=== PATIENT | male | born 1975 | race Caucasian/White ===

== ENCOUNTER 2018-06-06 12:24 | Inpatient (IN) | payer OTHER ==
--- NOTE | 2018-06-06 12:54 | EDPHY ---
HPI/HX/ROS/PE/MDM Narrative: CHIEF COMPLAINT: Abdominal pain HISTORY OF PRESENT ILLNESS: This patient is a 43 year old male with history of metastatic melanoma with mets to brain, liver, and bone complaining of abdominal distention and fatigue. He was initially diagnosed in November,. Two days ago he began taking Allopurinol to prevent increased uric acid related to tumor lysis. Patient recently received immunoglobulin therapy. He had a prior treatment in January and his current symptoms did not occur then. He feels that his stomach has become more swollen in the last couple days since his treatment. Denies any history of ascites. He endorses some constipation. He also fatigues easily with any small exertion. Patient was hypoxic at triage. He denies ever needing oxygen in the past. He endorses an intermittent mild cough. He endorses difficulty concentrating. Endorses lack of appetite. Denies fever. He has never had a seizure. He is not anticoagulated. He has an intermittent mild cough. No history of abdominal surgeries. He is currently undergoing immunotherapy and is followed by Dr. Alvarez, oncologist at [facility]. No fever, chills, chest pain, shortness of breath, palpitations, vomiting, diarrhea, urinary complaints , headache, lightheadedness. REVIEW OF SYSTEMS: A comprehensive 10 system review of systems is otherwise negative aside from elements mentioned in the history of present illness and medical decision making. PAST MEDICAL HISTORY: Hypertension. Bradycardia. Stage IV melanoma with metastases to liver, bone, and brain. SOCIAL HISTORY: Significant other at bedside. No alcohol, marijuana, or illicit drug use. Former smoker. VITAL SIGNS: Reviewed by me GENERAL: Diaphoretic. Pale/taylor skin. Ill-appearing. HEENT: Atraumatic. Eyes: No icterus, no injection. Mouth: Dry lips, slightly dry mucous membranes. No erythema or lesions. Neck: supple with no adenopathy. LUNGS: Clear to auscultation bilaterally, no wheezes, rhonchi or rales. CARDIAC: Regular tachycardia, no rubs, murmurs or gallops. ABDOMEN: Distended, very mild tenderness, no fluid wave. Skin graft site on abdomen. Soft, bowel sounds normal. BACK: No CVA tenderness. EXTREMITIES: No trauma. No edema. Range of motion is normal throughout. NEURO: Alert and oriented, grossly nonfocal. SKIN: Cool and clammy, no rash. PSYCHIATRIC: Normal mentation, no agitation. Portions of this note were transcribed by a hospital medical assistant. I personally performed a history, physical exam, medical decision making, and confirmed accuracy of information the transcribed note. ED Course: This patient is a 43 y/o male with history of metastatic melanoma who presents with abdominal distention and discomfort, and fatigue. Patient is followed by Dr. Alvarez, oncologist, at [facility] in [place]. He does not have a local physician. [phone] Alvarez. 12-LEAD EKG: Please see the full report in [facility]. My interpretation: Sinus rhythm. Low voltage. T wave inversions in lead 3. 13:10 Potassium is 5.8. Plan to start IVF. 13:13 Lactic acid 4.8. WBC elevated at 20,000. Sepsis protocol initiated. 14:02 Reviewed CXR. Evidence of bilateral pleural effusions. Possible cardiomegaly. Diaphragm elevated. 14:[address] Greene, radiologist. CT abdomen/pelvis negative for abscess or obstruction. Small amount of ascites present. Liver shows evidence of vast metastatic disease. 14:50 Attempted to contact patient's PA at oncology. 15:10 Spoke with PA for oncology at [facility]. Discussed high suspicion for pneumonitis in this patient. 15:30 Plan to admit. Spoke with hospitalist service. Dr. Padilla accepts admission for abdominal distention, hypoxia, metastatic disease. 16:[address] Alvarez, the patient's oncologist. He recommends 80mg Prednisone as well as high suspicion for pneumonitis, colitis. - Data Points Imaging Results: Abdomen/Pelvis CT 06/06/18 13:11 Impression: 1. Diffuse hepatic metastases. 2. Adenopathy compatible with metastatic disease. 3. Coclf-xl-[id number] volume of ascites with small bilateral pleural effusions. 4. Indeterminate lucency in the L4 vertebral body, with no definite evidence of osseous metastases. 4. Mild splenomegaly. 5. Additional findings as above. Findings discussed with Guerita Chacon MD, 06/06/2018 at 14:30. Attention: This examination does not use radiographic contrast, and as such, provides only a limited evaluation of the abdomen, pelvis and retroperitoneum. Chest X-Ray 06/06/18 13:28 Impression: 1. Small bilateral pleural effusions left side greater than right with adjacent compressive atelectatic change along with poor inspiration. Imaging: I viewed and interpreted images myself Laboratory Results: Laboratory Results 06/06/18 12:55 06/06/18 14:30 Medications Given: Discontinued Medications Allopurinol (Allopurinol) 100 mg PO DAILY ARGELIA Stop: 12/04/18 17:29 Last Admin: 06/08/18 08:40 Dose: 100 mg Calcium Gluconate (Calcium Gluconate) 1 gm IVP EDNOW ONE Stop: 06/06/18 13:49 Last Admin: 06/06/18 14:15 Dose: 1 gm Dextrose (Dextrose 50% Syringe) 25 gm IVP EDNOW ONE Stop: 06/06/18 13:49 Last Admin: 06/06/18 14:17 Dose: 25 gm Diphenhydramine HCl (Benadryl Injection) 25 mg IVP EDNOW ONE Stop: 06/06/18 15:17 Last Admin: 06/06/18 15:38 Dose: 25 mg Fludrocortisone Acetate (Florinef) 0.1 mg PO DAILY ARGELIA Stop: 12/04/18 15:59 Last Admin: 06/08/18 08:39 Dose: 0.1 mg Furosemide (Lasix Injection) 20 mg IVP ONCE ONE Stop: 06/07/18 13:50 Last Admin: 06/07/18 14:24 Dose: 20 mg Hydrocortisone/Pramoxine (Proctofoam-Hc Foam) 1 darion SD QID ARGELIA Stop: 12/05/18 09:10 Last Admin: 06/08/18 12:51 Dose: Not Given Sodium Chloride (Ns) 1,000 mls @ 0 mls/hr IV EDNOW ONE; Wide Open PRN Reason: Protocol Stop: 06/06/18 13:12 Last Admin: 06/06/18 13:21 Dose: 1,000 mls Sodium Chloride (Ns) 2,400 mls @ 4,800 mls/hr 30 ml/kg infuse over 30 min ( 2400 ml) IV EDNOW ONE PRN Reason: Protocol Stop: 06/06/18 14:28 Last Admin: 06/06/18 14:00 Dose: 1,400 mls Sodium Chloride (Ns) 1,000 mls @ 125 mls/hr IV CONT ARGELIA Stop: 12/03/18 18:14 Last Admin: 06/06/18 18:25 Dose: 1,000 mls Cefepime HCl 2 gm/ Sodium (Chloride) 100 mls @ 200 mls/hr IV Q8H ARGELIA PRN Reason: Protocol Stop: 07/06/18 18:59 Last Admin: 06/08/18 12:41 Dose: Not Given Sodium Chloride (Ns) 2,400 mls @ 4,800 mls/hr 30 ml/kg infuse over 30 min ( 2400 ml) IV ONCE ONE Stop: 06/06/18 18:36 Last Admin: 06/06/18 18:46 Dose: Not Given Insulin Human Regular (Humulin R) 10 unit IVP EDNOW ONE Stop: 06/06/18 13:49 Last Admin: 06/06/18 14:17 Dose: 10 units Methylprednisolone Sodium Succinate (Solu-Medrol) 125 mg IVP EDNOW ONE Stop: 06/06/18 15:15 Last Admin: 06/06/18 15:42 Dose: 125 mg Methylprednisolone Sodium Succinate (Solu-Medrol) 125 mg IVP Q6HRS ARGELIA Stop: 06/07/18 04:00 Last Admin: 06/06/18 23:34 Dose: 125 mg Morphine Sulfate (Morphine) 6 mg IVP EDNOW ONE Stop: 06/06/18 15:34 Last Admin: 06/06/18 15:46 Dose: 6 mg Morphine Sulfate (Morphine) 1 - 2 mg IVP Q1HR PRN PRN Reason: Pain, Severe Unable to Take PO Stop: 06/16/18 15:52 Last Admin: 06/07/18 12:07 Dose: 2 mg Morphine Sulfate (Morphine Ir) 15 mg PO Q4HRS PRN PRN Reason: Pain, Severe Able to Take PO Stop: 06/16/18 22:57 Last Admin: 06/08/18 12:41 Dose: 15 mg Pantoprazole Sodium (Protonix) 40 mg PO BID [facility] Stop: 12/04/18 11:59 Last Admin: 06/08/18 08:40 Dose: 40 mg Prednisone (Prednisone) 80 mg PO DAILY [facility] Stop: 12/04/18 08:59 Last Admin: 06/08/18 08:38 Dose: 80 mg Senna/Docusate Sodium (Senokot-S) 1 - 2 tab PO BID ARGELIA PRN Reason: Protocol Stop: 12/03/18 20:59 Last Admin: 06/08/18 08:39 Dose: 2 tab Sodium Polystyrene Sulfonate (Kayexalate) 30 gm SD EDNOW ONE Stop: 06/06/18 13:49 Last Admin: 06/06/18 15:08 Dose: Not Given Sodium Polystyrene Sulfonate (Kayexalate) 30 gm PO ONCE ONE Stop: 06/06/18 20:00 Last Admin: 06/07/18 02:48 Dose: Not Given Sodium Polystyrene Sulfonate (Kayexalate) 30 gm PO ONCE ONE Stop: 06/07/18 05:48 Last Admin: 06/07/18 10:44 Dose: Not Given Sodium Polystyrene Sulfonate (Kayexalate) 30 gm PO ONCE ONE Stop: 06/07/18 13:50 Last Admin: 06/07/18 20:09 Dose: 30 gm Point of Care Test Results: Chemistry 06/06/18 06/06/18 13:04 13:00 POC Sodium 131 mEq/L L mEq/L (135-145) POC Potassium 5.8 mEq/L H mEq/L (3.3-5.0) POC Chloride 101 mEq/L mEq/L (97-110) POC BUN 49 mg/dL H mg/dL (7-23) POC Creatinine 1.0 mg/dL mg/dL (0.7-1.3) POC Glucose 117 mg/dL H mg/dL (70-100) POC Troponin I 0.03 ng/mL ng/mL (0.00-0.08) Blood Gas/Lactic Acid-Arterial 06/06/18 13:11 POC Blood Source VENOUS Blood Gas/Lactic Acid-Venous 06/06/18 13:11 POC VBG pH 7.39 (7.31-7.42) POC VBG pCO2 33 mmHg L mmHg (40-44) POC VBG pO2 43 mmHg H mmHg (35-40) POC VBG HCO3 20 mEq/L L mEq/L (22-26) POC VBG Total CO2 21 mEq/L mEq/L (21-27) POC VBG Base Excess -5.0 mEq/L L mEq/L (-2.5-2.5) POC Mix VBG O2 Sat 81 % H % (65-75) POC Lactic Acid Lamont 4.9 mmol/L H mmol/L (0.7-2.1) ISTAT H&H 06/06/18 13:04 POC Hgb 18.0 gm/dL H gm/dL (13.7-17.5) POC Hct 53 % H % (40-51) General Initial Vital Signs: Initial Vital Signs Temperature (C) 36.4 C 06/06/18 12:27 Heart Rate 98 06/06/18 12:27 Blood Pressure 150/98 H 06/06/18 12:27 O2 Sat (%) 85 L 06/06/18 12:27 O2 Delivery Mode Nasal Cannula O2 (L/minute) 4 Allergies/Adverse Reactions: Iodine and Iodide Containing Produc Allergy (Verified 06/06/18 12:36) Home Medications: Medication Instructions Recorded Allopurinol [Allopurinol 100 MG 100 mg PO DAILY 06/06/18 (*)] Nivolumab IV 06/06/18 Yervoy IV 06/06/18 Cefepime HCl [Maxipime] 2 gm IV Q8H vial 06/07/18 Fludrocortisone Acetate [Florinef] 0.1 mg PO DAILY tab 06/07/18 Ondansetron HCl Pf [Zofran 4 mg 4 mg IVP Q4HRS PRN vial 06/07/18 Inj (*)] Ondansetron Odt [Zofran Odt 4 mg 4 mg PO Q4HRS PRN tab 06/07/18 (*)] Pantoprazole Sodium [Protonix 40mg 40 mg PO BID tab 06/07/18 (*)] Polyethylene Glycol 3350 [Miralax 17 gm PO DAILY PRN pkt 06/07/18 17 gm (*)] Promethazine HCl [Phenergan 6.25 - 12.5 mg IVP Q6HRS PRN inj 06/07/18 Injection] morphINE IR [morphINE IR 15 mg (*)] 15 mg PO Q4HRS PRN tab 06/07/18 morphINE [morphINE 2mg/ml Inj (*)] 1 - 2 mg IVP Q1HR PRN syr 06/07/18 predniSONE 80 mg PO DAILY tablet 06/07/18 Departure - Departure Disposition: [facility] Acute Clinical Impression: Abdominal distension, Hypoxemia, Metastatic disease Condition: Fair Report Scribed for: Guerita Chacon Report Scribed by: Renee Reed Date of Report: 06/06/18 Time of Report: 12:54
[2018-06-06] MEDS ORDERED: NS 1,000 ML IV ONE (13:11)
[2018-06-06 13:22] LABS: PLATELET COUNT 240 10^3/uL (150-400)
[2018-06-06 13:31] LABS: INR 1.12 (0.83-1.16); PROTIME(PATIENT) 14.6 SEC (12.0-15.0)
[2018-06-06] MEDS ORDERED: INSULIN REGULAR HUMAN 100 UNIT/ML UNIT IVP ONE (13:48)
[2018-06-06] MEDS ORDERED: SODIUM POLY SULF 15 GM/60 ML BOTTLE PR ONE (13:48)
[2018-06-06] MEDS ORDERED: D50W 25 GM/50 ML SYR IVP ONE (13:48)
[2018-06-06] MEDS ORDERED: CALCIUM GLUC 10% 1 GM/10 ML VIAL IVP ONE (13:48)
[2018-06-06] MEDS ORDERED: NS 2,400 ML IV ONE ×2 (13:59→18:07)
[2018-06-06 14:11] LABS: CREATINE KINASE 181 IU/L (0-224)
[2018-06-06] MEDS ORDERED: methylPREDNISolone SOD SUCC 125 MG/2 ML VIAL IVP ONE (15:14)
[2018-06-06] MEDS ORDERED: ONDANSETRON 4 MG/2 ML VIAL IVP PRN (15:53)
[2018-06-06] MEDS ORDERED: PROMETHAZINE HCL 25 MG/ML INJ IVP PRN (15:53)
[2018-06-06] MEDS ORDERED: HYDROCODONE/APAP 5/325 TAB PO PRN (15:53)
[2018-06-06] MEDS ORDERED: ACETAMINOPHEN 325 MG TAB PO PRN (15:53)
[2018-06-06] MEDS ORDERED: ONDANSETRON DISINTEGRATING 4 MG TAB PO PRN (15:53)
[2018-06-06] MEDS ORDERED: LORazepam 2 MG/ML INJ IVP PRN (15:53)
[2018-06-06] MEDS ORDERED: IOPAMIDOL (ISOVUE 370) 100 ML BTL IV ONE (16:51)
[2018-06-06] MEDS ORDERED: POLYETHYLENE GLYCOL 3350 17 GM PKT PO PRN (18:13)
[2018-06-06] MEDS ORDERED: MAGNESIUM HYDROXIDE 30 ML UDCUP PO PRN (18:13)
[2018-06-06] MEDS ORDERED: LACTULOSE 20 GM/30 ML UDCUP PO PRN (18:13)
[2018-06-06] MEDS ORDERED: BISACODYL 10 MG SUPP PR PRN (18:13)
[2018-06-06] MEDS ORDERED: NS 1,000 ML IV SCH (18:15)
--- NOTE | 2018-06-06 18:41 | GHP ---
DATE OF ADMISSION: 06/06/2018 CHIEF COMPLAINT: Abdominal bloating and pain. HISTORY: This is a 43-year-old man who is a patient at the [facility] for malignant metastatic melanoma. Patient has known metastases to the brain and liver, and has been undergoing treatment with nivolumab and ipilimumab since 05/24/2018. The patient notes that for the last couple of weeks, he has had issues with increasing exhaustion to the point where he really cannot walk across the room. He has had also recent abdominal pain associated with constipation, anorexia, and abdominal bloating. He has also been increasingly short of breath, and does not use oxygen typically at home. He denies fevers or chills. His notes that he has had decreased urine output for the last couple of days. The patient currently resides with his mother who lives here in [place], although he is receiving all of his care at the [facility] in [place]. He is scheduled for a brain MRI tomorrow to assess any progression of the known brain metastases from his melanoma. PAST MEDICAL HISTORY: Includes: 1. Metastatic melanoma as per HPI with known metastases to the brain and liver. It has been progressive, and he has been started on a new course of treatment as per HPI. 2. Chronically elevated LFTs secondary to his liver metastases. 3. Hypertension. PAST SURGICAL HISTORY: Includes skin biopsy and graft. SOCIAL HISTORY: Patient has a girlfriend who is present at bedside. He currently resides with his mother. He is a nonsmoker, nondrinker, nondrug user. FAMILY HISTORY: Reviewed and noncontributory. REVIEW OF SYSTEMS: Ten-point review of systems obtained, negative except as per HPI. HOME MEDICATIONS: 1. Allopurinol. 2. Morphine. 3. Nivolumab. 4. Ipilimumab. ALLERGIES: Iodine. PHYSICAL EXAMINATION: VITAL SIGNS: BP 125/92, heart rate 107, respiratory rate 24, O2 sats 93% on 5 L. He was 85% on room air. GENERAL APPEARANCE: This is a chronically ill-appearing male. He is awake and alert. He is in mild distress. EYES: Anicteric. HENT: Atraumatic. Dry mucous membranes. Face is flushed. CARDIOVASCULAR: Mildly tachy, regular, no MRG, 2+ pitting edema bilateral lower extremities. PULMONARY: Decreased breath sounds at the bases. Normal work of breathing. ABDOMEN: Mildly distended, diffuse tenderness to palpation without rebound or guarding, bowel sounds are present and normal. EXTREMITIES: 2+ pitting edema. No clubbing or cyanosis appreciated. SKIN: Warm, flushed, well perfused. NEURO/PSYCH: Oriented, appropriate. Patient is diffusely weak. LABORATORY STUDIES: Sodium of 132, potassium of 6.3 on repeat 5.8, BUN of 55, creatinine of 1.0, glucose of 112, conjugated bilirubin of 0.9, AST 604, ALT 157 , alk phos 908. White blood cell count of 20.3, hemoglobin of 16.6, hematocrit of 50.1. Lactic acid 4.4 to 3.8. Urinalysis showing casts and protein, but otherwise unremarkable. Chest x-ray personally reviewed and interpreted shows small bilateral pleural effusions, left greater than right, with compressive atelectasis and poor inspiration. Abdominal pelvic CT shows diffuse hepatic metastases, adenopathy. There is [id number] volume ascites with small bilateral pleural effusions. Indeterminate lucency in the L4 vertebral body without evidence of osseous metastases, otherwise unremarkable. EKG personally reviewed and interpreted shows sinus tachycardia. ASSESSMENT AND PLAN: This is a 43-year-old man with past medical history of metastatic melanoma, presenting with abdominal pain and bloating, constipation, and sepsis. 1. Severe sepsis with unclear source, however, presumed to be an infectious etiology. Cultures have been drawn and are pending. We will obtain a procalcitonin. We will start cefepime empirically. Chest and thorax CTA obtained given the patient's acute hypoxic respiratory failure as per next. 2. Acute hypoxic respiratory failure. Patient presenting with O2 saturations of 85% on room air. He has improved with supplemental O2. This was discussed with patient's outpatient oncologist and while this could represent a pneumonitis in the setting of his current biologic chemotherapy agents, this also could represent infectious process. Antibiotics as per above. CTA pending. We will ask our oncologist to evaluate patient while he is in-house as well. 3. Abdominal pain and bloating with an abdominal CT that was relatively unremarkable other than known metastatic disease. In discussion with oncology this is likely colitis related to biologic chemo. He does have mild-to- moderate ascites, but do not suspect this is responsible for his symptoms. Constipation has been a problem. We will start a bowel protocol and high dose steroids, IV methylpred tonight and 80mg prednisone in the am per oncology rec. 4. Prerenal azotemia in the setting of poor p.o. intake secondary to feeling poorly. does note that his urine output has been dropping off. We will monitor I's and O's, and continue IV fluids. Complicated by edema as next 5. volume overload: patient with lower extremity edema, mild ascites, small pleural effusion but appears to be intravascularly dry. Given fluid bolus with improved UOP, lactate still elevated as above. 6. Anion gap metabolic acidosis, elevated lactic acid on arrival. It is trending down but still elevated at 3.8. We will continue to trend.Given normal BP and good UOP etc query if lactate elevation related more to underlying malignancy and liver disease rather than tissue hypoperfusion. 7. Hyperkalemia, improved status post IV fluids. Will repeat. Suspect this is secondary to, again, volume depletion and prerenal azotemia. ECG without change, patient refusing kayaxelate. 8. Hyponatremia. Suspect this is a hypovolemic hyponatremia. Will continue to trend. 9. Elevated liver function tests. This is relatively stable and due to patient 's known extensive liver metastases. We will trend while inhouse. 10. Metastatic malignant melanoma with known brain and liver metastases. Patient is due for a brain MRI for further evaluation, and will discuss with Oncology whether or not this should be performed in-house. Onc consuted and will eval in morning Addendum: Patient increasingly upset with his care over the course of the night. Unhappy that he is under care of an afterschool babysitter rather than oncologist and upset that he is not improving in terms of his symptoms yet. Does not believe that oncology has been consulted for guidance. Offered to transfer patient to [facility] given his upset but he declines at this time. /[id number]/MODL MTDD
--- NOTE | 2018-06-06 18:50 | CPEKG ---
Test Reason : OPEN Blood Pressure : / mmHG Vent. Rate : 102 BPM Atrial Rate : 102 BPM P-R Int : 181 ms QRS Dur : 103 ms QT Int : 366 ms P-R-T Axes : 038 130 009 degrees QTc Int : 477 ms Sinus tachycardia Right axis deviation Low voltage, precordial leads Consider anterior infarct Confirmed by Guerita Chacon ([id number]) on 06/06/2018 6:50:23 PM Referred By: Confirmed By:Guerita hCacon
[2018-06-06] MEDS: CEFEPIME HCL 2 GM in NS 100 ML IV SCH (19:58)
[2018-06-06] MEDS: SENNOSIDES/DOCUSATE SODIUM TAB PO SCH (19:58)
[2018-06-06] MEDS: SODIUM POLY SULF 15 GM/60 ML BOTTLE PO ONE (21:28)
[2018-06-07] MEDS ORDERED: methylPREDNISolone SOD SUCC 125 MG/2 ML VIAL IVP SCH
[2018-06-07] MEDS: SODIUM POLY SULF 15 GM/60 ML BOTTLE PO ONE (02:48)
[2018-06-07] MEDS: SENNOSIDES/DOCUSATE SODIUM TAB PO SCH ×3 (02:49→22:04)
[2018-06-07] MEDS: CEFEPIME HCL 2 GM in NS 100 ML IV SCH ×3 (03:38→19:52)
[2018-06-07 04:25] LABS: PLATELET COUNT 199 10^3/uL (150-400)
[2018-06-07] MEDS ORDERED: SODIUM POLY SULF 15 GM/60 ML BOTTLE PO ONE ×2 (05:47→13:49)
[2018-06-07] MEDS: predniSONE 20 MG TAB PO SCH (10:17)
--- NOTE | 2018-06-07 10:33 | PDMN ---
Medical Necessity Medical necessity: Pt meets inpt criteria per MD order and MCG M-160, Sepsis and Other Febrile Illness, without Focal Infection, A-3 days. Est LOS>2MN for management of severe sepsis w/unclear source, presumed infectious etiology and acute hypoxic resp failure, 85% on RA, tachypneic, CTA chest shows sm pericardial effusion. Pt also presents w/extreme weakness, abdominal pain and bloating w/ascites and prerenal azotemia in setting of poor po intake, metabolic acidosis, lactate level elevated (last VBG lactic acid 4.9), hyperkalemia (last K level 6.7 trending up), hyponatremia. IVF, IV ABX's, IV steroids, IV morphine for pain, suppl O2,onc consult. Pt has hx progressive malignant melanoma with mets to brain and liver, has been undergoing treatment since 05/24/18, ongoing med nec inpt eval/treatment needed for above issues.
--- NOTE | 2018-06-07 10:57 | ECHO ---
[email or web address] [address] [address] Main: [phone] Fax: Transthoracic Echocardiogram Name: CLAUDIO JOHNSON MR#: [id number] Study Date: 06/07/2018 Study Time: 09:08 AM Date of : 1975 Age: 43 year(s) Height: 172.7 cm (68 in.) Weight: 81.65 kg (180 lb.) BSA: 1.95 m2 Gender: Male Examination: Echo Indication: volume overload, cardiotoxic chemotherapy Image Quality: Adequate Contrast: Requested by: Feli Padilla BP: 130 mmHg/92 mmHg Heart Rate: Rhythm: Indication: volume overload, cardiotoxic chemotherapy Procedure Staff [employer] Supervisor: Sheri Jose [facility] Reading Physician: Gonzalez Solis MD Requesting Provider: Measurements: Chambers Valvular Assessment AV/MV Valvular Assessment TV/PV Normal Normal Normal Name Value Range Name Value Range Name Value Range Ao Courtney (2D): 3.5 cm (1.4 cm-2.6 AV Vmax: 1.05 m/s (1 m/s-1.7 PV Vmax: 0.79 m/s (0.6 m/s-0.9 cm) m/s) m/s) IVSd (2D): 0.8 cm (0.6 cm-1.1 AV maxP mmHg ( - ) PV PGmax: 2 mmHg ( - ) cm) LVOT Vmax: 0.96 m/s (0.7 m/s-1.1 LVDd (2D): 4.2 cm (4.2 cm-5.9 m/s) cm) REGINA (Vmax): 3.5 cm2 ( - ) LVDs (2D): 2.9 cm (2.1 cm-4 MV E Vmax: 0.40 m/s ( - ) cm) MV A Vmax: 0.50 m/s ( - ) LVPWd (2D): 1.0 cm (0.6 cm-1 MV E/A: 0.80 ( - ) cm) LVOTd 2.2 cm 2.2 cm mm LVEF (BP): 66 % (>=55 %) RVDd(2D): 3.6 cm (1.9 cm-3.8 cmmm) Continued Measurements: Chambers Valvular Assessment AV/MV Name Value Name Value LADs Lon.9 cm MV DecTime: 218 m/s LA Area: 13.9 cm2 MV E/E' Septal: 6.30 LA Volume: 31 ml MV E/E' Lateral: 3.20 LA Volume Index: 15.9 ml/m2 RA Area: 14.6 cm2 Additional Vessels Patient: CLAUDIO JOHNSON Study Date: 06/07/2018 Page 1 of 2 09:08 AM Name Value Ao Ascendin.8 cm Findings: Left Ventricle: Normal size left ventricle. Borderline concentric LV hypertrophy. Normal global systolic LV function. EF is 66 %. No regional wall motion abnormality. Normal diastolic LV function. Right Ventricle: Normal size right ventricle. Normal RV function. Left Atrium: The left atrium is normal in size. Right Atrium: The right atrium is normal in size. Mitral Valve: The mitral valve is normal in appearance. There is no mitral valve regurgitation. Aortic Valve: The aortic valve is normal in appearance and function. There is no aortic valve regurgitation. No aortic valve stenosis is present. Tricuspid Valve: The tricuspid valve is normal in appearance and function. There is no tricuspid valve regurgitation. Pulmonary artery pressure is not obtained due to inadequate TR jet. Pulmonic Valve: Pulmonary valve not well visualized. There is no pulmonic regurgitation seen. Aorta: Normal size aortic root measuring 3.5 cm. Normal size ascending aorta measuring 3.8 cm. IVC: The IVC is not well visualized. Pericardium: Trivial pericardial effusion. (No Signature Object) Patient: CLAUDIO JOHNSON Study Date: 06/07/2018 Page 2 of 2 09:08 AM [id number]
[2018-06-07] MEDS: PANTOPRAZOLE SODIUM 40 MG TAB PO SCH ×2 (12:07→22:04)
--- NOTE | 2018-06-07 12:47 | HOSPPROG ---
Hospitalist Progress Note Assessment/Plan: 43 yo M w metastatic melanoma here w weakness, dyspnea, abdominal distension and hyperkalemia abdominal distension: suspect 2/2 ascites and enlarged liver from mets (images reviewed/interpreted by me) bowel sounds present and no rebound follow elevated lft's: transaminases and alk phos higher than resent values at [facility]- 200 's there liver parenchyma largely replaced w tumor check RUQ u/s to eval for biliary disease although unlikely given absence of barton's, normal ducts and bili hyperkalemia: ekg w normal intervals and t waves no clear explanation from current presentation suspect tissue from mets he is refusing telemetry, and thus far, repeat blood draw to check K, which has been treated this worsens his care sepsis: tachycaRDIA and elevated lactate elevated lactate more likely to be from impaired hepatic clearance continue cefepime source unclear- doubt pneumonia or abdominal source and UA OK proph: add lmwh code: full dyspnea: PE study neg no sig infiltrate plan of care: he has requested transfer to [facility], where he has been accepted but no bed 45 min crit care Subjective: case discussed at length w Dr Vitale, oncologist at [facility] Objective: Vital Signs Temp Pulse Resp BP Pulse Ox 36.6 C 94 20 153/109 H 91 L 06/07/18 11:53 06/07/18 11:53 06/07/18 11:53 06/07/18 11:53 06/07/18 11:53 Laboratory Results 06/07/18 03:57 06/07/18 03:57 06/06/18 06/07/18 06/08/18 05:59 05:59 05:59 Intake Total 3375 Output Total 175 Balance 3200 PT 14.6 SEC (12.0-15.0) 06/06/18 12:55 INR 1.12 (0.83-1.16) 06/06/18 12:55 - Physical Exam Constitutional: no apparent distress, appears nourished Eyes: PERRL, anicteric sclera Ears, Nose, Mouth, Throat: moist mucous membranes, hearing normal Cardiovascular: regular rate and rhythym, no murmur, rub, or gallop, No systolic murmur Respiratory: no respiratory distress, no rales or rhonchi Gastrointestinal: normoactive bowel sounds, distension, No barton's sign, No guarding, No rebound Genitourinary: No mcknight in urethra Skin: warm, normal color Musculoskeletal: full muscle strength, no muscle tenderness Neurologic: AAOx3 Psychiatric: interacting appropriately ICD10 Worksheet Patient Problems: Problems Problem Status Onset Abdominal distension Acute Hypoxemia Acute Metastatic disease Acute
[2018-06-07] MEDS ORDERED: FUROSEMIDE 20 MG/2 ML VIAL IVP ONE (13:49)
--- NOTE | 2018-06-07 14:26 | ASMTCMCOM ---
CM Note CM Note Notes: Pt is a 43 y/o male with metastatic cancer, abdominal distension and hypoxia. This Pt is requesting to be transferred to [facility]. Dr Arambula has contacted [facility] and at this time he is waiting for a bed to open. The EMTALA form has been begun. Dr Arambula has completed his part. [facility] has printed out the Pt's files. Transportation will be arranged once a bed is identified. CM to follow. D/C Plan: Transfer to [facility] Date Signed: 06/07/2018 02:25 PM Electronically Signed By:Anat Cochran
[2018-06-07] MEDS ORDERED: NS 1,000 ML IV SCH (17:00)
[2018-06-07] MEDS: FLUDROCORTISONE ACETATE 0.1 MG TAB PO SCH (18:02)
--- NOTE | 2018-06-07 18:02 | GDS ---
Date of discharge uncertain. DISCHARGE DIAGNOSES: 1. Metastatic melanoma. 2. Metabolic acidosis. 3. Urinary retention. 4. Hyperkalemia. 5. Hyponatremia. 6. Suspected adrenal insufficiency. 7. Leukocytosis. HOSPITAL COURSE: Please see admission History and Physical by Dr. Feli Padilla. The patient presented with weakness, dyspnea. He on dual immune therapy with Yervoy and nivolumab and at [facility]. He has known hepatic metastases with baseline transaminases in the 200s. On presentation, he was found to have no pulmonary embolism, diffuse hepatic metastatic disease, transaminases on in this 500s with an elevated alkaline phosphatase, leukocytosis, hyponatremia, hyperkalemia. 1. 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 He received steroids in the emergency department. Cortisol was added onto the admission labs which is pending at this time. He is ordered Florinef but it has not been given yet. He has not had ejkg changes with hyperkalemia and has refused telemetry monitoring. 2. Decreased urinary output: Despite a relatively normal creatinine, the patient appears dry. He has been given IV fluids on. He has actually been a bit of a noncompliant patient, refusing many things including further IV fluids ; however, he has begun to make urine. Peace is being placed at this time. 3. The patient has refused telemetry, I think he will accept it now. He has had no EKG changes, normal intervals, and non-peaked T-waves. He received Lasix and a couple of doses of Kayexalate. 4. Metabolic acidosis: The patient has a venous pH of 7.4 I suspect this elevated lactate is secondary to the near complete replacement of his hepatic parenchyma with tumor as opposed to tissue hypoperfusion_. 5. Question sepsis: Patient has no clear source of fever. He is on cefepime. There is no skin rash or other source of gram-positive infection. He does not have an intravascular device, so therefore vancomycin has been withheld. 6. Metastatic melanoma: His immune therapy is on hold. 7. Dyspnea: The patient has a CTA of the chest showing no pulmonary embolism, perhaps a bit of pneumonitis. He has no oxygen requirement notably. He had an echocardiogram that was unremarkable for wall motion abnormalities or diastolic dysfunction. He does not clinically have heart failure while here. 8. Plan of care: The patient has been a bit difficult to care for here, refusing many things, demanding transfer to [facility]. At the current time, the patient is in the queue to get a bed but we are waiting. He has been seen by our oncologist and further recommendations are forthcoming. The patient notably has been hemodynamically stable, afebrile, nontachycardic while here. He does not have an oxygen requirement. 9. This discharge is for transfer, not discharge to home. he requires inpatient care /[id number]/MODL MTDD
--- NOTE | 2018-06-07 18:52 | GHP ---
DATE OF ADMISSION: 06/06/2018 REASON FOR CONSULTATION: Patient admitted with abdominal pain and distension with history of metasta tic melanoma. Mr. John Luong is a very unfortunate 43-year-old male who is followed at [facility] by Dr. Dontae Alvarez for a history of metastatic melanoma. I do not have any of the primary records available. However, the patient reports that he was diagnosed with a nodular me lanoma in his scalp in November 2017. He describes undergoing a wide local excision with a sentinel nod e biopsy, which then led to a PET scan that identified liver metastases. He was diagnosed with metas tatic melanoma in December and then in January went to [place] and was treated on a clinical trial wit h ipilimumab and pembrolizumab along with high-dose aspirin. He reports that he was given 1 treatmen t and developed a significant rise in his liver function tests and LDH and, therefore, was taken off trial. He questions whether or not there may have been some component of tumor lysis. He was felt t o have very aggressive and progressive disease and came to [place] and is being seen by Dr. Alvarez at [facility]. 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 He has known bone, liver and brain meta stases. More recently, due to progressive disease in May he received his 1st dose of ipilimumab w ith nivolumab on May 24. That was given without incident. John is here today with his girlfriend. They report that he has had increasing abdominal pain and distension for the last 3-4 days. He is constipated and last had a bowel movement yesterday. He is anorectic and has no appetite but has not been vomiting. He denies any fever. He is understandably concerned about his condition and is eager to be transferred to [facility] when a bed is available. PAST MEDICAL HISTORY: 1. Metastatic melanoma with brain, liver and bone metastases. 2. Hypertension. PAST SURGICAL HISTORY: Wide local excision of a mallet scalp melanoma with sentinel lymph node biops y. SOCIAL HISTORY: He has a girlfriend. He lives in a trailer. He is a nonsmoker and nondrinker. FAMILY HISTORY: Noncontributory. REVIEW OF SYSTEMS: A 10-point review of systems is negative except for HPI. PHYSICAL EXAMINATION: GENERAL: He is a pale, chronically ill appearing, somewhat uncomfortable male sitting on the edge of the bed. VITALS: Blood pressure is 128/98, heart rate 87, O2 sat 91% on nata m air. HEENT: Pupils are equal. Sclerae anicteric. LUNGS: Clear. HEART: Regular rate. ABDOMEN : Markedly distended, soft, tender to palpation. No rebound. EXTREMITIES: No edema. LABORATORY DATA: White blood cell count 17.2, hematocrit 48, platelet count 199. Sodium 132, potass ium 6.3. AST 498, ALT 141, alkaline phosphatase 797. CT [facility] shows marked hepatomegaly with replacement with innumerable lesions consistent with metastatic dis ease. There is no appreciable biliary dilatation. The gallbladder, pancreas, adrenal glands, and ki dneys all appeared normal. The spleen is enlarged measuring 14.4 cm. There are no dilated bowel loo ps. There is a small amount of ascites. No free air. There is a tiny lucency at L4. No bladder or ureteral distension. The bladder is decompressed. A CT angiogram of the chest does not show any ev idence of pulmonary emboli. He has borderline cardiomegaly with small bilateral pleural effusions an d subsegmental atelectasis. He has subtle ground-glass attenuation which could represent early pneum onitis or pulmonary edema. Small pericardial effusion. Pericardiophrenic and hepatogastric ligament lymphadenopathy. Marked hepatomegaly. IMPRESSION: This is an unfortunate 43-year-old male with an extremely aggressive metastatic melanoma . He has been treated with frontline therapy with ipilimumab and pembrolizumab with progressive dise ase, followed by a dual BRAF/MEK inhibitor, in which he also developed progressive disease. He has r eceived 1 dose of ipilimumab and nivolumab approximately 2 weeks ago. His primary symptoms are that of abdominal pain and distension. In reviewing the CT scan I suspect t his is related to rapidly progressive metastatic disease. He has massive hepatomegaly that essential ly fills the entire right side of the abdomen and goes completely over to the left. I do not think t here will be much benefit of paracentesis in terms of giving him relief. We discussed some strategie s to help keep him as comfortable as possible. He gets relief with the morphine and will continue to take that. I am concerned that the patient is in a situation where the disease may not be able to b e turned around. The patient is understandably requesting transfer to [facility], as that is where his primary doctors are and all of his records are. Dr. Aramblua is in the process of facilitating this. Also of note, he has marked hyperkalemia of uncertain etiology. Tumor lysis would not be an expected sequelae with this therapy. Adrenal insufficiency is a consideration. Usually this develops 12 wee ks or greater from the start of immunotherapy. Given that he was treated in January with immunotherapy, adrenal insufficiency is a consideration. His transaminases are markedly elevated, most likely secon oswaldo to metastatic disease. This would be an early timeframe for him to develop autoimmune hepatitis . /[id number]/MODL
[2018-06-07] MEDS: ALLOPURINOL 100 MG TAB PO SCH (19:52)
[2018-06-08] MEDS: CEFEPIME HCL 2 GM in NS 100 ML IV SCH ×2 (02:07→12:41)
[2018-06-08 05:53] LABS: PLATELET COUNT 197 10^3/uL (150-400)
--- NOTE | 2018-06-08 06:55 | CPEKG ---
Test Reason : OPEN Blood Pressure : / mmHG Vent. Rate : 093 BPM Atrial Rate : 093 BPM P-R Int : 190 ms QRS Dur : 099 ms QT Int : 348 ms P-R-T Axes : 043 154 048 degrees QTc Int : 433 ms Sinus rhythm Right axis deviation Low voltage, extremity and precordial leads Confirmed by Swapnil Garcia ([id number]) on 06/08/2018 6:55:02 AM Referred By: Confirmed By:Swapnil Garcia
[2018-06-08] MEDS: predniSONE 20 MG TAB PO SCH (08:38)
[2018-06-08] MEDS: FLUDROCORTISONE ACETATE 0.1 MG TAB PO SCH (08:39)
[2018-06-08] MEDS: SENNOSIDES/DOCUSATE SODIUM TAB PO SCH (08:39)
[2018-06-08] MEDS: PANTOPRAZOLE SODIUM 40 MG TAB PO SCH (08:40)
[2018-06-08] MEDS: ALLOPURINOL 100 MG TAB PO SCH (08:40)
[2018-06-08] MEDS: PROCTOFOAM HC 10 GM CAN PR SCH ×2 (09:52→12:51)
--- NOTE | 2018-06-08 11:16 | GCON ---
DATE OF CONSULTATION: 06/08/2018 CHIEF COMPLAINT: Perianal pain. HISTORY OF PRESENT ILLNESS: This is a 43-year-old male admitted to the medical service since the . Briefly, he has metastatic melanoma and is a patient at the [facility] with known metastases to th e brain, liver, and is currently undergoing treatment at the [facility] since late May. Briefly, he was admitted to the medical service with abdominal pain and bloating associated with pretty bad co nstipation and anorexia. He has been managed conservatively. CT scan of his abdomen and pelvis show ed a significant amount of ascites, but no clear bowel obstruction. He has a tray of food at the bed side, which he has been taking. He does not have much of an appetite secondary to the above. He not es for the last 2 weeks he has had significant perianal pain and has been significantly constipated. It has gotten acutely worse over the last 24 hours. He complains of an excruciating perianal pain. He notices a fullness down there. He denies having any drainage or bleeding from the area and state s that the pain is worse with bowel movements at a 10/10 in intensity. When he is resting, he still has pain at a 6/10. He has no further complaints on my examination. PAST MEDICAL HISTORY: Metastatic melanoma, brain and liver; chronically elevated LFTs and hypertensi on. PAST SURGICAL HISTORY: Skin biopsy and skin graft. SOCIAL HISTORY: Lives at home. Denies illicit drug use. Girlfriend is at bedside. FAMILY HISTORY: Noncontributory. REVIEW OF SYSTEMS: A 10-point review of systems was performed. HOME MEDICATIONS: No blood thinners. ALLERGIES: None. PHYSICAL EXAM: VITAL SIGNS: Temperature 36.4. Heart rate is 97. Blood pressure is 125/99, and he is 91% on room air. CONSTITUTIONAL: He is in no apparent distress. He appears uncomfortable. EYES : His pupils are equal, round, and reactive to light and accommodation. He has anicteric sclerae. His extraocular movements are intact. EARS, NOSE, MOUTH, THROAT: Dry mucous membranes. His hearing is normal. His ears appear normal. He has normal dentition. CARDIOVASCULAR: He has a regular rat e and rhythm. RESPIRATORY: No respiratory distress, rales or rhonchi. He is otherwise clear to aus cultation. GI: His abdomen is distended. It is somewhat tender to deep palpation. He does have no rmoactive bowel sounds. SKIN: He has a fairly large scar in the right flank; it is otherwise warm, normal color, without any rashes or abrasions. RECTAL: Shows 2 fairly large thrombosed external hem orrhoids which are tender to palpation. No fissures. Internal hemorrhoids appear normal. MUSCULOSKE LETAL: Full strength. No tenderness. Normal joint range of motion. No weakness. NEUROLOGIC: He is alert and oriented x3. His cranial nerves 2-12 are intact. He has no weakness, no numbness. PSY CH: He is interacting appropriately. He is somewhat lethargic. He is not anxious or encephalopathi c. LYMPH/HEME/IMMUNOLOGIC: He has no cervical, groin, or supraclavicular lymphadenopathy appreciate d. IMAGING: None. LABS: Leukocytosis to 22,000. The remainder of his CBC is within normal limits. His metabolic pane l shows a low sodium at 134, a high potassium at 6.1, and elevated LFTs, with an AST of 542, an ALT o f 177, and an alk phos of 837. IMAGING: None. ASSESSMENT AND PLAN: 43-year-old male with metastatic melanoma on fairly high-dose narcotics with co nstipation and thrombosed hemorrhoids x2. I told the patient that he would likely benefit from incis ional drainage of the thrombosed hemorrhoids as relieving the pressure would cause significant amount of relief. I briefly discussed the procedure with him. He wishes to proceed. We will plan to proc eed with bedside incisional hemorrhoidal drainage as time permits. /[id number]/MODL
[2018-06-08 12:06] VITALS: BP 136/99
--- NOTE | 2018-06-08 12:22 | ASMTCMCOM ---
CM Note CM Note Notes: Pt to transfer to [facility] under care of Dr Vitale. He will be in room 1179. [facility] will provide stretcher transport at 1:00. EMTALA complete. Date Signed: 06/08/2018 12:21 PM Electronically Signed By:Debbie Jordan LCSW
--- NOTE | 2018-06-08 12:41 | PDDCSUM ---
Discharge Summary Discharge Summary: Admission Date: 06/06/2018 Discharge Date: 06/08/2017 Consults: Surgery Procedures: CTA, Lanced Hemorrhoid Discharge Diagnoses: 1. Metastatic Melanoma 2. Metabolic Acidosis 3. Urinary Retention 4. Hyperkalemia 5. Hyponatremia 6. Suspected Adrenal Insufficiency 7. Leukocytosis 8. Transaminitis 9. Thrombosed External Hemorrhoids Hospital Course: Please see admission H&P by Dr. Feli Pdailla. The patient originally presented with weakness, dyspnea. He is on dual immune therapy with Yervoy and nivolumab with his Oncological care at [facility]. He has known hepatic metastases with baseline transaminases in the 200s. On presenattion, he was found to have no PE, diffuse hepatic mets, transaminases in 500s with elevated AP, WBC, hyponatremia, and hyperkalemia. 1. 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 He received steroids in ED. Cortisol was added onto admission labs which is pending at this time. He has been started on Florinef. He has not had EKG changes with hyperkalemia and has refused telemetry monitoring. 2. Metabolic Acidosis: The patient has a venous pH of 7.4. This is likely due to elevated lactate which is secondary to the near complete replacement of his hepatic parenchyma with tumor as oppsed to tissue hypoperfusion. 3. Metastatic melanoma: His immune therapy is on hold. Liver enzymes continue to rise indicating progressive disease. Patient requesting transfer to the [facility] where he received oncological care. 4. Question Sepsis: Patient has no clear source of fever. He remains on cefepime, vancomycin has been withheld. 5. Dyspnea: CTA on admission showed no PE. He has no 02 requirement. He had an TTE that was unremarkable for wall motion abnormalities or diastolic dysfunction. 6. Plan of care: The patient has requested transfer to the [facility] and has been accepted today. The patient has been HD stable, afebrile, nontachycardic. 7. This discharge is for transfer, not discharge to home. He requires inpatient care. Time spent on discharge was >35 minutes with >50% of time spent on education/ counseling of patient and family.
--- NOTE | 2018-06-08 12:42 | PDIAF ---
- Diagnosis Diagnosis: Metastatic Melanoma Code Status: Full Code - Medication Management Discharge Medications: Medications to Continue on Transfer Allopurinol [Allopurinol 100 MG (*)] 100 mg PO DAILY 06/06/18 [Last Taken ] Nivolumab IV 06/06/18 [Last Taken 05/24/18] Yervoy IV 06/06/18 [Last Taken 05/24/18] Cefepime HCl [Maxipime] 2 gm IV Q8H vial 06/07/18 [Last Taken Unknown] Fludrocortisone Acetate [Florinef] 0.1 mg PO DAILY tab 06/07/18 [Last Taken Unknown] Ondansetron HCl Pf [Zofran 4 mg Inj (*)] 4 mg IVP Q4HRS PRN vial 06/07/18 [ Last Taken Unknown] Ondansetron Odt [Zofran Odt 4 mg (*)] 4 mg PO Q4HRS PRN tab 06/07/18 [Last Taken Unknown] Pantoprazole Sodium [Protonix 40mg (*)] 40 mg PO BID tab 06/07/18 [Last Taken Unknown] Polyethylene Glycol 3350 [Miralax 17 gm (*)] 17 gm PO DAILY PRN pkt 06/07/18 [ Last Taken Unknown] Promethazine HCl [Phenergan Injection] 6.25 - 12.5 mg IVP Q6HRS PRN inj [Last Taken Unknown] morphINE IR [morphINE IR 15 mg (*)] 15 mg PO Q4HRS PRN tab 06/07/18 [Last Taken Unknown] morphINE [morphINE 2mg/ml Inj (*)] 1 - 2 mg IVP Q1HR PRN syr 06/07/18 [Last Taken Unknown] predniSONE 80 mg PO DAILY tablet 06/07/18 [Last Taken Unknown] Discharge Medications: Refer to the Discharge Home Medication list for PRN reason. - Orders Diet Recommendation: no restrictions on diet Diet Texture: Regular Texture Diet - Follow Up Care Current Providers and Referrals: Patient,NotPresent [Unknown] - As per Instructions
--- NOTE | 2018-06-08 12:52 | GOP ---
DATE OF OPERATION: 06/08/2018 SURGEON: Zoin Marmolejo MD SHORT ORDER COOK: None. ANESTHESIA: 1% lidocaine. PREOPERATIVE DIAGNOSIS: Thrombosed external hemorrhoids x2. POSTOPERATIVE DIAGNOSIS: Thrombosed external hemorrhoids x2. PROCEDURE PERFORMED: Examination under anesthesia with incisional drainage of external thrombosed he morrhoids x2. FINDINGS: Successful anesthetization and drainage of 2 large external thrombosed hemorrhoids. SPECIMENS: None. ESTIMATED BLOOD LOSS: 5 cc. DESCRIPTION OF PROCEDURE: The patient was greeted in his hospital bed. Risks, benefits, and alterna tives were discussed. Consent was signed. A World Health Organization time-out was performed. The perianal area was then prepped and draped in typical sterile fashion. I commenced the procedure by c reating a field block using 1% lidocaine buffered with bicarbonate in both of the external thrombosed hemorrhoids. After successful anesthetization, I successfully drained both hemorrhoids by making a 1 cm incision the length of the hemorrhoid, draining out all of the old thrombosed blood. Once they w ere drained, hemostasis was achieved with gentle pressure. I then inspected the area and found no o ther significant pathology with successful drainage of both hemorrhoids. The area was then packed wi th sterile gauze. The patient tolerated the procedure well without any complications. DRAINS: None. /[id number]/MODL
--- NOTE | 2018-06-08 17:18 | SOAPPROG ---
SOAP Progress Note Assessment/Plan: A/P: * Metastatic melanoma with extensive hepatic metastases. * ?Immunotherapy related adrenal insufficiency. * Hemorrhoids. Pt is waiting for transfer to [facility]. He has refused most interventions here, but has accepted steroids. 06/08/18 17:16 Subjective: S: abdominal pain and fullness, does not want additional pain meds. Biggest current concern in hemorrhoidal pain. O: VS reviewed. Gen: uncomfortable appearing. Abd: massive hepatomegaly. Labs reviewed. Objective: Vital Signs Temp Pulse Resp BP Pulse Ox 36.6 C 93 18 136/99 H 91 L 06/08/18 12:06 06/08/18 12:06 06/08/18 12:06 06/08/18 12:06 06/08/18 12:06 Laboratory Results 06/08/18 05:17 06/08/18 05:17 06/07/18 06/08/18 06/09/18 05:59 05:59 05:59 Intake Total 3375 440 Output Total 175 625 Balance 3200 -185 PT 14.6 SEC (12.0-15.0) 06/06/18 12:55 INR 1.12 (0.83-1.16) 06/06/18 12:55 ICD10 Worksheet Patient Problems: Problems Problem Status Onset Abdominal distension Acute Hypoxemia Acute Metastatic disease Acute
== END 2018-06-08 12:54 | disposition short-term general hospital (02) | DRG 982 ==
LOC: F1N 16:32
PROVIDERS: ADMIT Internal Medicine; ATTEND Internal Medicine
PROC: 0D9Q0ZZ Drainage of Anus, Open Approach (ICD-10-PCS; principal; 2018-06-08)
DX: C78.7 Secondary malignant neoplasm of liver and intrahepatic bile duct (principal); C79.51 Secondary malignant neoplasm of bone; C79.31 Secondary malignant neoplasm of brain; E87.2 Acidosis; E87.1 Hypo-osmolality and hyponatremia; E27.40 Unspecified adrenocortical insufficiency; E86.9 Volume depletion, unspecified; R33.9 Retention of urine, unspecified; E87.5 Hyperkalemia; K64.5 Perianal venous thrombosis; K59.00 Constipation, unspecified; R63.0 Anorexia; Z85.820 Personal history of malignant melanoma of skin
CPT/HCPCS: 82088-90; 82435-PO; 82565-PO; 82947-PO; 83605-PO; 84132-PO; 84295-PO; 84484-PO; 84520-PO; 85014-PO; 96374; J0610; J0692; J1200; J1815; J1940; J2270; J2930; J7512; Q9967